=== PATIENT | male | born 1975 | race African-American/Black ===

== ENCOUNTER 2016-06-04 15:04 | Emergency (ER) | payer SELFPAY ==
[~2016-06-04] VITALS: Ht 170.2 cm; Wt 59.0 kg
[~2016-06-04 15:04] MED LIST: NKM
[2016-06-04] MEDS ORDERED: NKM (15:13)
[2016-06-04 15:15] VITALS: BP 111/71
--- NOTE | 2016-06-04 15:55 | Emergency Room Report ---
History of Present Illness General Chief Complaint: Pain Source: Patient (Cathy Key) Present Illness HPI 40 YO male presents to the ED c/o callouses on bilateral feet since 14 years of age. with worsening of symptoms progressively. pain is 8/10 - 10/10 in severity exacerbated with weight bearing on lesions. Patient states he was seen by a mission assessment specialist who recommended surgery and stated that he had "athletes feet and lesions are due to pressure of the bones in his feet. Patient states that he never followed up and has stents in between insurances. Patient states that he has had progression of tenderness to the plantar aspects of his feet where calluses are located and is not responsive to Motrin or Tylenol. Patient denies erythema denies skin color changes, denies trauma or fall, denies fevers or chills. She denies history of possible foreign bodies. he denies itching. Denies numbness tingling or loss of sensation or gross motor movements of the extremities, incontinence of bowel or bladder. Denies CP, Palpitations, LOC, AMS , dizziness, Changes in Vision, Sensation, paresthesias, or a sudden severe headache. (Cathy Key) Allergies: Coded Allergies: No Known Allergies (Unverified , 08/24/15) Patient History Past Medical History: see triage record Past Surgical History: none Pertinent Family History: none Immunizations: UTD Reviewed Nursing Documentation: PMH: Agreed, PSxH: Agreed (Cathy Key) Nursing Documentation-PMH Past Medical History: No History, Except For (Cathy Key) Review of Systems All Other Systems: negative except mentioned in HPI (Cathy Key) Physical Exam Vital Signs Date Time Temp Pulse Resp B/P Pulse Ox O2 Delivery O2 Flow Rate FiO2 06/04/16 15:08 98.1 88 16 111/71 95 Room Air Sp02 EP Interpretation: reviewed, normal General Appearance: no apparent distress, alert, GCS 15, non-toxic Head: normocephalic, atraumatic Eyes: bilateral eye PERRL, bilateral eye normal inspection ENT: hearing grossly normal, normal pharynx, no angioedema, normal voice Neck: full range of motion, supple/symm/no masses Respiratory: lungs clear, normal breath sounds, speaking full sentences Cardiovascular #1: regular rate, rhythm, no edema, normal capillary refill Cardiovascular #2: 2+ dorsalis pedis (R), 2+ dorsalis pedis (L) Musculoskeletal: back normal, gait/station normal, normal range of motion, tender - superficial ttp to the center of lesions of the plantar aspect of feet bilaterally, no bony ttp. Neurologic: alert, oriented x3, responsive, motor strength/tone normal, sensory intact, speech normal Psychiatric: judgement/insight normal, memory normal, mood/affect normal Skin: normal color, no rash, warm/dry, well hydrated, other - multiple thickened lesions callus vs. warts, no erythema, circular in shape, no bleeding , multiple sizes from 0.3mm to 2cm in diameter. location on distal aspect of foot and great toes bilaterally. NVI with good capillary refill. Lymphatic: no adenopathy (Cathy Key) Medical Decision Making PA Attestation Dr. Menezes is my supervising Physician whom patient management has been discussed with. (Cathy Key) Diagnostic Impression: Primary Impression: Plantar callus Additional Impression: Plantar warts ER Course Pt. presents to the ED c/o callouses on bilateral feet since 14 years of age. with worsening of symptoms progressively. Ddx considered but are not limited to cellulitis, plantar warts, dermatitis, urticaria, eczema, tinea, fb Vital signs: are WNL, pt. is afebrile H&PE are most consistent with plantar callus' and warts, no evidence of bacterial infection at this time, retained fb not likely. ORDERS: none required at this time, the diagnosis is clinical ED INTERVENTIONS: None required at this time. d/w pt. follow up with podiatry, and will try conservative treatment with topical anesthetic cream for tenderness. DISCHARGE: At this time pt. is stable for d/c to home. Will provide printed patient care instructions, and any necessary prescriptions. Care plan and follow up instructions have been discussed with the patient prior to discharge. (Cathy Key) ER Course I examined this patient and agree with the treatment plan. (Antony Menezes M.D.) Last Vital Signs Date Time Temp Pulse Resp B/P Pulse Ox O2 Delivery O2 Flow Rate FiO2 06/04/16 15:15 98.1 88 16 111/71 95 Room Air (Cathy Key) Disposition: HOME, SELF-CARE Condition: Stable Scripts Lidocaine (TOPICAINE 5) 113 Gm Gel..gram. 1 APPLIC TP QID Y for For Pain, #113 GM 2 Refills Prov: Cathy Key 06/04/16 Referrals: NOT CHOSEN [facility],REFERRING (PCP) Patient Instructions: Corns and Calluses, Plantar Warts Additional Instructions: Take medications as directed. Follow up with PCP and EQUIP[facility] in 3-5 days Return sooner to ED if new symptoms occur, or current symptoms become worse. - Please note that this Emergency Department Report was dictated using [employer] mechanic technology software, occasionally this can lead to erroneous entry secondary to interpretation by the dictation equipment. Cathy Key Jun 04, 2016 15:55 Antony Menezes M.D. Jun 12, 2016 10:32
[2016-06-04] MEDS ORDERED: TOPICAINE 5113 GM TP (16:00)
[2016-06-04 16:19] VITALS: BP 111/71
== END 2016-06-04 16:20 | disposition home or self-care (01) ==
LOC: EMR 15:24
DX: L84 Corns and callosities (principal); B07.0 Plantar wart; M25.571 Pain in right ankle and joints of right foot
CPT/HCPCS: 99283

== ENCOUNTER 2016-10-01 14:47 | Emergency (ER) | payer MEDICAID ==
[~2016-10-01] VITALS: Ht 170.2 cm; Wt 56.7 kg
[~2016-10-01 14:47] MED LIST changes: +TOPICAINE 5113 GM TP
[2016-10-01 15:36] VITALS: BP 123/69
[2016-10-01] MEDS ORDERED: TOPICAINE 5113 GM TP (15:38)
[2016-10-01 15:45] VITALS: BP 123/69
--- NOTE | 2016-10-01 20:47 | Emergency Room Report ---
History of Present Illness General Chief Complaint: Pain Source: Patient Present Illness HPI 40-year-old male presents to ED for evaluation. Patient is here complaining of pain to the bottom of his feet. States he has severe calluses. States he's had these for years. Has been told that he needs surgery but has since refused. Patient was here in the past has received lidocaine which has helped for the pain. Pain is a 10 out of 10, throbbing, worse with walking. Patient now believes he should see a graduate engineer for surgical evaluation. No other aggravating relieving factors. Denies any other associated symptoms Allergies: Coded Allergies: No Known Allergies (Unverified , 08/24/15) Patient History Past Medical History: none Past Surgical History: none Pertinent Family History: none Social History: Denies: alcohol use, drug use, smoking Immunizations: UTD Reviewed Nursing Documentation: PMH: Agreed, PSxH: Agreed Nursing Documentation-PMH Past Medical History: No Stated History Review of Systems All Other Systems: negative except mentioned in HPI Physical Exam Vital Signs Date Time Temp Pulse Resp B/P Pulse Ox O2 Delivery O2 Flow Rate FiO2 10/01/16 14:51 98.6 77 16 123/69 99 Room Air Sp02 EP Interpretation: reviewed, normal General Appearance: no apparent distress, alert, GCS 15, non-toxic Head: normocephalic Eyes: bilateral eye PERRL, bilateral eye normal inspection ENT: normal ENT inspection Neck: normal inspection Respiratory: normal inspection Cardiovascular #1: normal inspection Gastrointestinal: normal inspection Rectal: deferred Genitourinary: no CVA tenderness Musculoskeletal: other - multiple calluses bilateral feet, tender Neurologic: alert, oriented x3, responsive, motor strength/tone normal, sensory intact, speech normal Psychiatric: normal inspection Skin: normal inspection Lymphatic: normal inspection Medical Decision Making Diagnostic Impression: Primary Impression: Callus of foot ER Course Hospital Course 40 year-old male presents with pain to bilateral feet Differential diagnoses include: Cellulitis, dermatitis, insect bite, abscess Clinical course Patient placed on stretcher. After initial history, physical exam reveals a male in no acute distress. On exam there are multiple calluses to the bilateral feet. No open wounds noted. No emergent treatment indicated. Patient will prescribe a lidocaine gel prevoiusly prescribed. given referrral to podiatry Diagnosis -callus of foot stable and discharged to home with prescription for Lidocaine gel. Instructed to followup with podiatry. Instructed return to ED if symptoms recur or worsen Last Vital Signs Date Time Temp Pulse Resp B/P Pulse Ox O2 Delivery O2 Flow Rate FiO2 10/01/16 15:45 98.6 77 16 123/69 99 Room Air Status: improved Disposition: HOME, SELF-CARE Condition: Stable Scripts Lidocaine (TOPICAINE 5) 113 Gm Gel..gram. 1 APPLIC TP QID Y for For Pain, #113 GM 2 Refills Prov: YEIMI PUTNAM M.D. 10/01/16 Referrals: [facility],REFERRING (PCP) Dennis Cintron DPM Patient Instructions: Bunion (Hallux Valgus) YEIMI PUTNAM M.D. Oct 01, 2016 20:47
== END 2016-10-01 15:50 | disposition home or self-care (01) ==
LOC: EMR 15:47
DX: L84 Corns and callosities (principal)
CPT/HCPCS: 99283